=== PATIENT | male | born 1990 | race Caucasian/White ===

== ENCOUNTER 2019-08-24 22:10 | Emergency (ER) | payer MEDICAID ==
[~2019-08-24] VITALS: Ht 180.3 cm; Wt 97.5 kg
[2019-08-24 22:18] VITALS: BP 135/71
--- NOTE | 2019-08-24 22:22 | NUR ---
PT WAITING IN ER LOBBY
--- NOTE | 2019-08-25 00:16 | NUR ---
PT AMBULATED TO BED C
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
--- NOTE | 2019-08-25 00:45 | NUR ---
PT TAKEN TO BED 12 WITH STEADY GAIT.
--- NOTE | 2019-08-25 00:50 | NUR ---
[facility] in [facility] - 08/25/19 at 0103 by [email or web address] PT RETURNED FROM CT VIA WC.
--- NOTE | 2019-08-25 00:53 | NUR ---
PT TAKEN TO CT VIA W/C.
--- NOTE | 2019-08-25 01:03 | NUR ---
PT RETURNED FROM CT VIA WC.
--- NOTE | 2019-08-25 02:04 | NUR ---
PT RESTING IN BED WITH EYES CLOSED. RESPIERATIONS ARE EVEN AND UNLABORED SKIN IS WARM AND DRY TO TOUCH. PT RESPONSIVE TO VERBAL STIMULI. BED LOCKED AND IN LOWEST POSITION.
[2019-08-25 02:16] VITALS: BP 122/76
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
--- NOTE | 2019-08-25 03:28 | NUR ---
PT RESTING IN POSITION OF COMFORT, BED LOW AND LOCKED, SIDERAILS UP, VSS, WILL CONTINUE TO MONITOR
--- NOTE | 2019-08-25 04:49 | NUR ---
Patient discharged with v/s stable. Written and verbal after care instructions given and explained. Patient verbalized understanding. Ambulatory with steady gait. All questions addressed prior to discharge. Advised to follow up with PMD. PT GIVEN A REFERRAL TO [facility] WITH COPY OF CT RECORDS DURING THE STAY IN ER.
== END 2019-08-25 04:50 | disposition left against medical advice (07) ==
LOC: MED 22:10
DX: S02.40DA Maxillary fracture, left side, initial encounter for closed fracture (principal); S02.122A Fracture of orbital roof, left side, initial encounter for closed fracture; S02.40FA Zygomatic fracture, left side, initial encounter for closed fracture; S02.842A Fracture of lateral orbital wall, left side, initial encounter for closed fracture; G58.8 Other specified mononeuropathies; Y08.89XA Assault by other specified means, initial encounter; Y93.89 Activity, other specified; Y92.89 Other specified places as the place of occurrence of the external cause; Y99.8 Other external cause status
CPT/HCPCS: 70486; 99284

== ENCOUNTER 2021-06-18 20:01 | Emergency (ER) | payer MEDICAID ==
[~2021-06-18] VITALS: Ht 180.3 cm; Wt 115.7 kg
[2021-06-18 20:16] VITALS: BP 135/83
--- NOTE | 2021-06-18 20:57 | NUR ---
PT RETURN FROM RADIOLOGY
--- NOTE | 2021-06-18 21:41 | NUR ---
PT TAKEN TO BED 5
[2021-06-18] MEDS ORDERED: predniSONE 20 MG TAB PO ONE (22:45)
[2021-06-18] MEDS ORDERED: ALBUTEROL SULFATE/IPRATROPIU 3 ML SOL IH ONE (22:45)
--- NOTE | 2021-06-18 22:51 | NUR ---
Respiratory Therapist at bedside for respiratory intervention.
[2021-06-18 23:00] VITALS: BP 129/80
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
--- NOTE | 2021-06-18 23:15 | NUR ---
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
--- NOTE | 2021-06-18 23:40 | NUR ---
PT C/O OF BACK PAIN. DR. ALAMO NOTIFIED. NEW ORDER FOR MOTRIN 800MG PO RECEIVED. PRIMARY NURSE NOTIFIED.
[2021-06-18] MEDS ORDERED: ALBU0.0912 IH (23:44)
[2021-06-18] MEDS ORDERED: PRED20TA5 PO (23:44)
[2021-06-18] MEDS ORDERED: GUAI10LI PO (23:44)
[2021-06-18] MEDS ORDERED: IBUPROFEN 800 MG TAB PO ONE (23:45)
--- NOTE | 2021-06-19 | NUR ---
PT LAYING IN BED WITH PARTNER. IBUPROFEN PROVIDED
[2021-06-19] MEDS ORDERED: TAM75 PO (00:24)
--- NOTE | 2021-06-19 00:34 | NUR ---
Patient discharged with v/s stable. Written and verbal after care instructions given and explained. Patient alert, oriented and verbalized understanding of instructions. Ambulatory with steady gait. All questions addressed prior to discharge. ID band removed. Patient advised to follow up with PMD. Rx of PREDNISONE, TAMIFLU, ALBUTEROL, AND GUAFENESIN-DM given. Patient educated on indication of medication including possible reaction and side effects. Opportunity to ask questions provided and answered.
--- NOTE | 2021-06-19 00:36 | NUR ---
The patient's care was reviewed and supervised by Brynn Penaloza RN.
== END 2021-06-19 00:34 | disposition home or self-care (01) ==
LOC: MED 20:01
DX: J10.1 Influenza due to other identified influenza virus with other respiratory manifestations (principal); Z20.822 Contact with and (suspected) exposure to COVID-19; J45.909 Unspecified asthma, uncomplicated; Z79.899 Other long term (current) drug therapy
CPT/HCPCS: 71045; 87426; 87804; 94640; 99284; J7512

== ENCOUNTER 2021-07-26 21:54 | Emergency (ER) | payer MEDICAID ==
[~2021-07-26] VITALS: Ht 180.3 cm; Wt 99.8 kg
[~2021-07-26 21:54] MED LIST: ALBU0.0912 IH; GUAI10LI PO; PRED20TA5 PO; TAM75 PO
[2021-07-26 21:57] VITALS: BP 148/75
--- NOTE | 2021-07-26 23:00 | NUR ---
PT TAKEN TO BED 8
--- NOTE | 2021-07-26 23:02 | NUR ---
Dr. Sanchez examining patient.
[2021-07-26] MEDS ORDERED: NACL 0.9% 1,000 ML IV ONE (23:10)
[2021-07-26] MEDS ORDERED: KETOROLAC 15 MG/ML VIAL IVP ONE (23:10)
--- NOTE | 2021-07-26 23:13 | NUR ---
PT TAKEN TO XRAY
--- NOTE | 2021-07-26 23:20 | NUR ---
PT RETURN FROM XRAY
[2021-07-26 23:32] LABS: BASOPHILS # (AUTO) 0.1 K/uL (0.00-0.22); BASOPHILS % (AUTO) 0.5 % (0.0-2.0); EOSINOPHILS # (AUTO) 0.2 K/uL (0-0.4); EOSINOPHILS % (AUTO) 1.4 % (0.0-4.0); HEMATOCRIT 43.8 % (36-52); HEMOGLOBIN 14.9 g/dL (12.0-18.0); LYMPHOCYTES # (AUTO) 2.1 K/uL (2.0-11.5); LYMPHOCYTES % (AUTO) 18.2 % (20.5-51.1); MEAN CORPUSCULAR HEMOGLOBIN 31 pg (27-31); MEAN CORPUSCULAR HGB CONC 34 g/dL (33-37); MEAN CORPUSCULAR VOLUME 91.8 fL (80-94); MONOCYTES # (AUTO) 0.9 K/uL (0.8-1.0); MONOCYTES % (AUTO) 8.2 % (1.7-9.3); NEUTROPHILS # (AUTO) 8.3 K/uL (1.8-7.7); NEUTROPHILS % (AUTO) 71.7 % (42.2-75.2); PLATELET COUNT (AUTO) 262 K/uL (140-450); RED BLOOD CELL COUNT(AUTO) 4.77 MIL/uL (4.20-6.10); RED CELL DISTRIBUTION WIDTH 13.8 % (11.6-13.7); WHITE BLOOD COUNT (AUTO) 11.5 K/uL (4.8-10.8)
[2021-07-26 23:41] LABS: ANION GAP 12.5 (8-16); CARBON DIOXIDE 25.3 mmol/L (21-32); CREATININE 1.1 mg/dL (0.6-1.3); POTASSIUM 3.8 mmol/L (3.5-5.1)
--- NOTE | 2021-07-27 00:14 | NUR ---
PT TAKEN TO CT
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
[2021-07-27] MEDS ORDERED: LIDOCAINE 2% 1000 MG/50 ML VIAL INJ ONE (05:40)
[2021-07-27] MEDS ORDERED: SULF-59 PO (06:00)
[2021-07-27] MEDS ORDERED: ACET-5629 PO (06:00)
[2021-07-27] MEDS ORDERED: NAPR-1717 PO (06:00)
[2021-07-27] MEDS ORDERED: BACITRACIN OINT 500 UNITS/GM PKT TP ONE (06:20)
[2021-07-27 06:50] VITALS: BP 144/76
--- NOTE | 2021-07-27 06:50 | NUR ---
Patient discharged with v/s stable. Written and verbal after care instructions given and explained. Patient alert, oriented and verbalized understanding of instructions. Ambulatory with steady gait. All questions addressed prior to discharge. ID band removed. Patient advised to follow up with PMD. Rx of PERCOCET, NAPROXEN, BACTRIM given. Opportunity to ask questions provided and answered.
--- NOTE | 2021-07-27 07:03 | NUR ---
The patient's care was reviewed and supervised by Brynn Penaloza RN.
== END 2021-07-27 06:50 | disposition home or self-care (01) ==
LOC: MED 21:54
DX: L02.416 Cutaneous abscess of left lower limb (principal); J45.909 Unspecified asthma, uncomplicated; F17.210 Nicotine dependence, cigarettes, uncomplicated; F12.90 Cannabis use, unspecified, uncomplicated; Z79.899 Other long term (current) drug therapy
CPT/HCPCS: 10160; 36415; 73701; 80048; 85025; 96361; 96374; 99285; J1885; J2001; J7030; Q9967